=== PATIENT | male | born 1985 | race Caucasian/White ===

== ENCOUNTER 2018-07-12 15:27 | Emergency (ER) | payer OTHER ==
[2018-07-12] MEDS ORDERED: SODIUM CHLORIDE 0.9% 1000ML 1,000 ML IV ONE (15:44)
[2018-07-12 15:58] LABS: HEMOGLOBIN 16.6 gm/dl (13.5-17.7); MEAN CORPUSCULAR HEMOGLOBIN 31.5 pg (27.0-32.0); MEAN CORPUSCULAR HGB CONC 34.2 gm/dl (32.0-36.0)
[2018-07-12 16:13] LABS: ALBUMIN 4.3 gm/dl (3.4-5.0); ALCOHOL 0.019 gm/dl (0.000-0.08); BILIRUBIN,TOTAL 0.8 mg/dl (0.2-1.0); CALCIUM 9.3 mg/dl (8.5-10.1); CARBON DIOXIDE 20.6 mEq/L (21-32); CREATININE 1.18 mg/dl (0.80-1.30); TOTAL PROTEIN 8.4 gm/dl (6.4-8.2)
[2018-07-12 16:17] LABS: BARBITUATES NEGATIVE (NEGATIVE); BENZODIAZEPINES NEGATIVE (NEGATIVE); CANNABINOL(THC) NEGATIVE (NEGATIVE); METHADONE NEGATIVE (NEGATIVE); OPIATES(OPI) NEGATIVE (NEGATIVE); TRICYCLIC ANTIDEPRESSANTS NEGATIVE (NEGATIVE)
[2018-07-12 16:18] LABS: AMPHETAMINES POSITIVE (NEGATIVE); COCAINE(COC) NEGATIVE (NEGATIVE); METHAMPHETAMINES NEGATIVE (NEGATIVE); OXYCODONE(OXY) NEGATIVE (NEGATIVE); PROPOXYPHENE(PPX) NEGATIVE (NEGATIVE)
[2018-07-12] MEDS ORDERED: SERTRALINE HYDROCHLORIDE 50 MG TAB PO STA (16:28)
[2018-07-12] MEDS ORDERED: THIAMINE 100 MG TAB PO ONE (16:35)
[2018-07-12] MEDS ORDERED: POTASSIUM CHLORIDE 10 MEQ TER PO ONE (16:35)
[2018-07-12] MEDS ORDERED: POTASSIUM CHLORIDE 10 MEQ TER ONE (16:37)
[2018-07-12] MEDS ORDERED: THIAMINE 100 MG TAB ONE (16:37)
[2018-07-12] MEDS ORDERED: SERTRALINE HYDROCHLORIDE 50 MG TAB ONE (16:39)
[2018-07-12] MEDS ORDERED: BUSPIRONE HCL 5 MG TAB PO STA (17:26)
[2018-07-12 19:30] VITALS: BP 133/86; PULSE 95; RESP 20; O2SAT 93
== END 2018-07-12 19:21 | disposition home or self-care (01) | DRG 880 ==
LOC: ED 15:27
DX: F41.0 Panic disorder [episodic paroxysmal anxiety] (principal); F10.20 Alcohol dependence, uncomplicated; E87.6 Hypokalemia; E86.0 Dehydration; F41.8 Other specified anxiety disorders
CPT/HCPCS: 36415; 80053; 80305; 80307; 82962; 85027; 93005; 96365; 99284; 99285; A9270-GY